=== PATIENT | male | born 1995 | race Caucasian/White ===

== ENCOUNTER 2019-03-20 13:10 | Emergency (ER) | payer BC ==
[~2019-03-20] VITALS: Ht 180.3 cm; Wt 76.2 kg
[2019-03-20 13:14] VITALS: BP 136/80; TEMP 98.5
[2019-03-20 15:12] VITALS: PULSE 64
== END 2019-03-20 15:12 | disposition home or self-care (01) ==
LOC: COL.ER 13:10
DX: T23.202A Burn of second degree of left hand, unspecified site, initial encounter (principal); T23.201A Burn of second degree of right hand, unspecified site, initial encounter; T31.0 Burns involving less than 10% of body surface; Y26.XXXA Exposure to smoke, fire and flames, undetermined intent, initial encounter; Y92.009 Unspecified place in unspecified non-institutional (private) residence as the place of occurrence of the external cause